=== PATIENT | male | born 1960 | race African-American/Black ===

== ENCOUNTER → 2017-01-27 | Outpatient (CLI) | payer OTHER ==
--- NOTE | 2017-01-28 18:24 | PCVCIMAG ---
APPROVED REPORT Exam: Stress Echocardiogram Indication: CAD s/p MT, CAD s/p CABG, Cardiomyopathy, Hypertension Patient Location: Echo lab Stress Nurse: Shona Radford RN Status: routine Ht: 5 ft 8 in HR: 60 bpm BP: 150/86 mmHg Rhythm: NSR with frequent PVCs Procedure The patient underwent an Exercise Stress Test using the Freddy Protocol. Blood pressure, heart rate, and EKG were monitored. An Echocardiogram was performed by garage door service technician in four stages in quad fashion. At peak stress, four selected images were obtained and placed side by side with resting images for comparison. Stress Test Details Stress Test: Exercise stress testing was performed using a Freddy protocol. HR Resting HR: 60 bpmMax Heart Rate (APMHR): 166 bpm Max HR Achieved: 144 bpmTarget HR (85% APMHR): 141 bpm % of APMHR: 86 Recovery HR: 92 bpm HR response to stress: Normal HR response to stress BP Resting BP: 150/86 mmHg Max BP: 192/82 mmHg Recovery BP: 176/80 mmHg ECG Resting ECG: Sinus Rhythm w/ PVCs and baseline T wave abnormality Stress ECG: Sinus Rhythm with frequent PVCs ST Change: Nondiagnostic resting ST abnormalities Arrhythmia: Frequent PVCs Recovery ECG: Frequent PVCs with couplet and one triplet PVC in recovery that resolved to NSR Recovery ST Change: Nondiagnostic resting ST abnormalities Recovery Arrhythmia: PVCs Clinical Reason for Termination: Maximal effort Stress Symptoms: Dyspnea Exercise duration: 9 min 15 sec Highest Stage Achieved: Stage 4: 4.2 mph at 16% grade. Exercise capacity: 10.8 METs Overall Exercise Capacity for Age: Normal Pre-Stress Echo The resting Echocardiogram showed mildly decreased left ventricular contractility with an estimated Ejection Fraction of about 45%. The resting Echocardiogram demonstrated wall motion abnormality in the mid inferior wall. Fixed Mid inferior akinesis and distal septal hypokinesis post MT and CABG. Post-Stress Echo The stress Echocardiogram showed normal left ventricular contractility with an estimated Ejection Fraction of about 50-55%. The stress Echocardiogram demonstrated wall motion abnormality in the mid-inferior wall. Mid inferior akinesis and distal septal hypokinesis post MT and CABG. No new wall motion abnormalities. Clinical No clinical or ECG evidence for ischemia. Conclusion Clinical Response: Non-ischemic Exercise Capacity: Average Stress ECG Response: Equivocal Stress Echo Images: Non-ischemic The left ventricle is normal in size and wall thickness in both the rest and stress images. Other Information Study Quality: Adequate <Conclusion> The left ventricle is normal in size and wall thickness in both the rest and stress images.
== END | disposition home or self-care (01) ==
LOC: PCVCIMAG 13:14
PROVIDERS: ATTEND Internal Medicine Cardiovascular Disease
DX: I49.3 Ventricular premature depolarization (principal); I25.10 Atherosclerotic heart disease of native coronary artery without angina pectoris; I25.2 Old myocardial infarction; I42.9 Cardiomyopathy, unspecified; I10 Essential (primary) hypertension; Z95.1 Presence of aortocoronary bypass graft
CPT/HCPCS: 93325; 93351

== ENCOUNTER → 2017-03-11 | Outpatient (CLI) | payer OTHER ==
--- NOTE | 2017-03-11 10:16 | PCVCIMAG ---
EXAM: BILATERAL RENAL ULTRASOUND AND BILATERAL RENAL DUPLEX INDICATION: Hypertension FINDINGS: Right kidney: Length measures 11.3 cm. No hydronephrosis or extensive renal scarring. Several benign cysts in the kidney, the largest in the midpole measuring 2.1 x 1.8 x 2.9 cm Right renal duplex: Adequate technical quality. No sonographic evidence of renal artery stenosis. The aortic to renal artery ratio is 1.8. The renal vein is patent. Left kidney: Length measures 13.8 cm. No hydronephrosis or extensive renal scarring. Several benign cysts in the kidney, the largest in the midpole measuring 5.6 x 6.1 cm, and the largest in the lower pole measuring 5.0 x 5.3 x 4.8 cm. Left renal duplex: Adequate technical quality. No sonographic evidence of renal artery stenosis. The aortic to renal artery ratio is 0.9. The renal vein is patent. Bladder: No obvious abnormalities. IMPRESSION: No significant renal artery stenosis. No hydronephrosis bilaterally. LOC:[place] [id number]
== END | disposition home or self-care (01) ==
LOC: PCVCIMAG 09:18
PROVIDERS: ATTEND Internal Medicine Cardiovascular Disease
DX: N28.1 Cyst of kidney, acquired (principal); I25.10 Atherosclerotic heart disease of native coronary artery without angina pectoris; I10 Essential (primary) hypertension; E78.00 Pure hypercholesterolemia, unspecified; I49.3 Ventricular premature depolarization; I77.9 Disorder of arteries and arterioles, unspecified; Z95.1 Presence of aortocoronary bypass graft; Z79.82 Long term (current) use of aspirin
CPT/HCPCS: 76770; 93005; 93975; G0463